=== PATIENT | male | born 1975 | race Caucasian/White ===

== ENCOUNTER 2024-03-26 15:25 | Emergency (ER) | payer OTHER, SELFPAY ==
[2024-03-26 15:29] VITALS: BP 163/92; PULSE 74; RESP 18; TEMP 36.9; O2SAT 97; BMI 33.2
--- NOTE | 2024-03-26 16:00 | ED.GENADULT ---
HPI - General Adult General Date Seen: 03/26/24 Chief complaint: Headache/Migraine Stated complaint: Headaches Time Seen by Provider: 03/26/24 15:58 History of Present Illness HPI narrative: 48 yo M urge to the emergency department this afternoon by Leigh Patton from the [facility]. Per urgent care notes... He had presented to the ER today complaining of his worst headache of life. Headache ongoing for 5 days. Also low-grade fever of 100.0 daily for the past 4 days. He has no family history of subarachnoid a course stroke. He does not have a history migraines and really has headaches. He is a smoker but has been cutting back on tobacco use for the past 5 days. He used to drink about 12 beers a day (for over a decade) but stopped drinking all alcohol week ago. He does not have a regular doctor. He is not currently on any medications. Labs from Urgent Care showed a white blood cell count of 8.29, hemoglobin of 14.0, sodium 139, potassium 4.1, chloride 103, bicarb 23, BUN 16, creatinine 1.2, glucose 99, I count 1.16 History from the patient is that he is generally healthy. 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 He knows that he needs to make healthy choices to have a healthy life and be there for his family and children. He is a 23-year-old, 19-year-old, 14-year-old. He has a long-term history of tobacco use and also alcohol use. He had been drinking about 12 beers a day. Beginning last weekend on Friday he quit drinking. Last drink was Friday. He also is cutting back on smoking from about a pack a day down to about 2-4 cigarettes per. He does not use drugs. He has no recent head trauma. No history of headaches. No pattern of evolving headaches over weeks or months. He checks his carbon monoxide levels at home and they are normal. No on of his family members have headaches Beginning on Friday afternoon he began to have a mild headache located in the bifrontal region and behind his eyes. It got worse by Friday morning. Is fairly bothersome unless he takes medication for. He initially took combination acetaminophen/aspirin. Since then he has been taking either acetaminophen or aspirin. When he takes medications headache it is much better and gets down to a almost on notable 10. When he does skips medications, headache gets worse again. He also notes that he has had low-grade fevers around 100F, for the past several days. With that no other symptoms. No stuffy nose. No sore throat. No cough. No chest pain. No neck pain or stiffness. No abdominal pain. No nausea vomiting. Bowel movements have been normal. Urination has been normal. He has noted a blistery rash on the patient's right upper quadrant of his abdomen that started on Friday and and has been getting gradually better. The blisters broke open and if now scabbed over. It has been a bit itchy and painful. No other rashes Related Data Previous Rx's ?Medication ?Instructions ?Recorded valacyclovir 500 mg tablet 1,000 mg (2 x 500 mg) PO TID 7 03/26/24 days #42 tabs Allergies Allergy/AdvReac Type Severity Reaction Status Date / Time No Known Drug Allergies Allergy Verified 03/26/24 16:58 [facility] Social History Smoking Status: Current some day smoker What tobacco products do you use: cigarettes How often do you have a drink containing alcohol: monthly or less AUDIT-C Alcohol total score: 1 Non-prescribed substance use: denies use Exam Narrative: Exam Narrative: Constitutional: Appears well-developed and well-nourished. Alert. Conversant, comfortable. Very polite. He has lytes on his room and I offered to turn on the lights but he says his headache is really not bothering him right now any has no photophobia.. Non toxic. HENT: Head: Atraumatic. No depressed skull fracture, Raccoon Eyes, Miranda's sign, or hemotympanum. Face normal. TMs normal. He Nose: Nose normal. Mouth/Throat: Oral mucosa is clear and moist. no trismus. Pharynx normal. Tonsils symmetric. No tonsillar enlargement, erythema, or exudate. Eyes: Conjunctivae normal. EOM normal. Pupils equal, round, and reactive to light. No scleral icterus. Neck: Normal range of motion. No stiffness or meningismus. Neck supple. No tracheal deviation present. Cardiovascular: Normal rate, regular rhythm. No gallop. No friction rub. No murmur heard. Symmetric radial artery pulses Pulmonary/Chest: Effort normal. No stridor. No respiratory distress. No wheezes. No rales. No rhonchi . No tenderness. Abdominal: Soft. Bowel sounds normal. No distension. No mass. No tenderness. No rebound. No guarding. Musculoskeletal: RUE: Normal range of motion. No tenderness. No deformity LUE: Normal range of motion. No tenderness. No deformity RLE: Normal range of motion. No edema. No tenderness. No deformity LLE: Normal range of motion. No edema. No tenderness. No deformity Neurological: Exam no Skin: Vesicular rash in right upper quadrant consistent with shingles. Skin is warm and dry. No rash noted. No pallor. Normal capillary refill. Psychiatric: Normal mood. Normal affect. Calm. Const: Vital Signs, click to edit/add: Vital Signs - 24 hr 03/26/24 15:29 03/26/24 18:20 Temperature 98.4 F 98.0 F Pulse Rate [Right Pulse Oximeter] 74 74 Respiratory Rate 18 18 Blood Pressure [Ri ght Upper Arm] 163/92 H 164/98 H Pulse Oximetry 97 95 Oxygen Delivery Me thod Room Air Room Air Course Vital Signs Vital signs: Initial Vital Signs Temperature 98.4 F 03/26/24 15:29 Temperature Source Temporal Artery Scan 03/26/24 15:29 Pulse Rate 74 03/26/24 15:29 Pulse Rhythm Regular 03/26/24 15:29 Pulse Strength 3+ Normal 03/26/24 15:29 Respiratory Rate 18 03/26/24 15:29 Blood Pressure 163/92 H 03/26/24 15:29 Blood Pressure Mean 115 H 03/26/24 15:29 Blood Pressure Position Sitting 03/26/24 15:29 Pulse Oximetry 97 03/26/24 15:29 Oxygen Delivery Method Room Air 03/26/24 15:29 Vital Signs Temperature 98.4 F 03/26/24 15:29 Pulse Rate 74 03/26/24 15:29 Respiratory Rate 18 03/26/24 15:29 Blood Pressure 163/92 H 03/26/24 15:29 Pulse Oximetry 97 03/26/24 15:29 Oxygen Delivery Method Room Air 03/26/24 15:29 Temperature 98.0 F 03/26/24 18:20 Pulse Rate 74 03/26/24 18:20 Respiratory Rate 18 03/26/24 18:20 Blood Pressure 164/98 H 03/26/24 18:20 Pulse Oximetry 95 03/26/24 18:20 Oxygen Delivery Method Room Air 03/26/24 18:20 Medical Decision Making MDM Narrative Medical decision making narrative: 48-year-old male with no significant past medical history. He does have a history of alcohol abuse and tobacco use but quit drinking 6 days ago and is also quitting smoking at the same time He was sent to the ER today for evaluation of headache also low-grade fever. Headache began gradually 5 days ago on Friday and got worse since Friday and has been persistent, but responding nicely to OTC pain medications since then. Differential is broad In terms of headache, this is his reported ?worst headache of life. ?. But was not abrupt and maximal at onset. It started gradually on Friday and progressed over the next couple of days. However consider possible subarachnoid. Noncontrast head CT is normal. Discussed that noncontrast CT would have a low sensitivity since we are fiber 6 days out from onset. Would need follow-up testing with either lumbar puncture to look for xanthochromia or CT angiogram to look for aneurysmal disease. Patient does not want to have LP. We went ahead with CTA, preliminary CT is normal. Also no evidence for cervical artery dissection, AVM, or other stenosis. Differential for his headache would also include possible meningitis he does report low-grade fevers. He is overall very well-appearing and has no neck stiffness. Clinically nontoxic. He is afebrile and hemodynamically stable here. White count was normal in urgent care. Discussed the potential for meningitis with the patient. Only way to confirm or deny would be to do lumbar puncture. Using a process of shared decision making we decided to hold off. Very unlikely to represent a bacterial meningitis with his clinically good appearance and headache ongoing now for more than 5 days. I do consider possible viral meningitis since he also has a coincident shingles outbreak in his right T8 or T9 dermatome. In terms of shingles , will treat with Valtrex. I do not see any other vesicular rashes to suggest disseminated zoster. He does not have any eye symptoms to suggest ocular zoster. We discussed possibility of a viral meningitis causing his headache. He does not want to have LP to evaluate. With his headache and low-grade fever consider other viral syndrome. There is a high prevalence of influenza and coronavirus in our community currently. He does not have any cough or sore throat or other UR symptoms but does have headache. PCR is negative for COVID, flu, RSV. CRP normal. Procalcitonin low, suggesting viral infection. He recently quit drinking, prompting laboratory workup. He already had normal CBC and BMP in clinic. LFTs are normal. Patient does not want to undergo lumbar puncture. I think it is reasonable to hold off for now. Headache is potentially, but unlikely, caused by viral meningitis. Extremely low likelihood for bacterial meningitis. Precautions for return to the ER reviewed. Lab Data Labs: Lab Results 03/26/24 Range/Units 16:51 Sodium 138 (135-149) mmol/L Potassium 4.0 (3.6-5.1) mmol/L Chloride 104 (96-114) mmol/L Carbon Dioxide 24 (20-32) mmol/L Anion Gap 10 (7-15) mEq/L BUN 16 (7-30) mg/dL Creatinine 0.9 (0.5-1.5) mg/dL Estimated Creat Clear 107.78 Estimated GFR 104 ml/min Glucose 96 (60-115) mg/dL Calcium 8.9 (8.4-10.6) mg/dL Total Bilirubin 0.4 (0.1-1.5) mg/dL AST 23 (12-35) U/L ALT 20 (4-50) U/L Alkaline Phosphatase 68 (40-150) U/L C-Reactive Protein < 0.5 L (0.5-1.0) mg/dL Total Protein 7.4 (6.0-8.3) g/dL Albumin 4.4 (3.3-5.0) g/dL Procalcitonin 0.05 (<0.50) ng/mL SARS-CoV-2 (PCR) Negative SARS-CoV-2 (Negative) Influenza Type A (PCR) Negative PCR FLU A (Negative) Influenza Type B (PCR) Negative PCR FLU B (Negative) RSV (PCR) Negative PCR RSV (Negative) Imaging Data CT scan - head: Attestation: I have reviewed the pertinent imaging results. Radiologist's impression: IMPRESSION: No acute intracranial abnormality. CTA head and neck: Attestation: I have reviewed the pertinent imaging results. Radiologist's impression: Preliminary Report: Findings: INTRACRANIAL ANGIOGRAM: Slightly suboptimal evaluation secondary to venous contamination. Anterior circulation: No flow-limiting stenosis or aneurysm. Posterior circulation: No flow-limiting stenosis or aneurysm. Slightly dominant left vertebral artery. Dural venous sinuses: Patent. Additional comment: None. EXTRACRANIAL ANGIOGRAM: Proximal great vessels: No flow-limiting stenosis or dissection. Cervical vessels: No flow-limiting stenosis or dissection. Mild mixed atherosclerosis of the left carotid bifurcation without significant narrowing by NASCET criteria. Additional comment: None. NECK: Soft tissues: Normal. Bones: Mild degenerative changes of the visualized spine. Lung apices: Clear. Additional comment: None. Impression: No flow-limiting stenosis, occlusion or aneurysm in the intracranial and extracranial circulations. Discharge Plan Discharge Clinical Impression: Headache, Shingles Patient Disposition: Home, Self-Care Condition: Stable Instructions: Shingles (ED), Acute Headache (DC) Additional Instructions: As we discussed, please come back to the ER right away if you get worse-especially if have worsening headache, neck stiffness, higher fever, blurry vision, vomiting, trouble speaking or confusion, numbness or tingling in her arms or legs, or if you have any spreading of the shingles. Please recheck with your regular doctor in 3-5 days for a checkup and make sure you are getting better. Your blood pressure is mildly elevated today so please arrange blood pressure check at your doctor's office. Start on the antiviral treat shingles, valacyclovir and take it as directed for 1 week. You can use your regular medications treat your headache. If you notice the headache is getting worse or they are not effective, come back to the ER right away. Prescriptions: New valacyclovir 500 mg tablet 1,000 mg PO TID 7 Days Qty: 42 0RF Follow Up/Referrals: Howard Cantu MD [Primary Care Provider] - Stand Alone Forms: [employer] Info Instructions
[2024-03-26 17:35] LABS: PCR FLU A Negative PCR FLU A (Negative); PCR FLU B Negative PCR FLU B (Negative); PCR RSV Negative PCR RSV (Negative); SARS PCR* Negative SARS-CoV-2 (Negative)
[2024-03-26 18:15] LABS: Albumin* 4.4 g/dL (3.3-5.0); Chloride* 104 mmol/L (96-114)
[2024-03-26 18:16] LABS: Sodium* 138 mmol/L (135-149)
[2024-03-26 18:18] LABS: Bilirubin Total* 0.4 mg/dL (0.1-1.5); Creatinine* 0.9 mg/dL (0.5-1.5); Est. Creatinine Clearance* 107.78; Estimated Glomerular Filt Rate 104 ml/min
[2024-03-26 18:19] LABS: Alanine Aminotransferase* 20 U/L (4-50); Alkaline Phosphatase* 68 U/L (40-150); Anion Gap 10 mEq/L (7-15); Aspartate Amino Transferase* 23 U/L (12-35); Blood Urea Nitrogen* 16 mg/dL (7-30); Calcium* 8.9 mg/dL (8.4-10.6); Carbon Dioxide* 24 mmol/L (20-32); Glucose* 96 mg/dL (60-115); Total Protein* 7.4 g/dL (6.0-8.3)
[2024-03-26 18:20] VITALS: BP 164/98; PULSE 74; RESP 18; TEMP 36.7; O2SAT 95
[2024-03-26 18:27] LABS: C Reactive Protein* < 0.5 mg/dL (0.5-1.0)
[2024-03-26 18:36] LABS: Procalcitonin* 0.05 ng/mL (<0.50)
== END 2024-03-26 18:30 | disposition home or self-care (01) ==
PROVIDERS: Emergency Provider Emergency Medicine; PCP Family Medicine
DX: R51.9 Headache, unspecified (principal); B02.9 Zoster without complications
CPT/HCPCS: 36415; 70450; 70496; 70498; 80053; 84145; 86140; 87631; 99283; 99284; Q9967